=== PATIENT | female | born 1975 | race Caucasian/White ===

== ENCOUNTER 2020-01-31 12:30 | Outpatient (RCR) | payer OTHER, SELFPAY ==
--- NOTE | 2020-01-04 16:28 | PTOPEVAL ---
PHYSICAL THERAPY EVALUATION AND PLAN OF CARE 01-04-2020 Thank you for referring Ana María Santiago to [facility].?She is scheduled to be seen for therapy? 2 x/week for 4 weeks. Please review, sign, date and return this plan of care GENET. I agree with and certify that the following plan of care is medically necessary. Referring Physician Date Attending Provider: Dr. 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 Musculoskeletal History Hx Other Musculoskeletal Disorders Yes: pain in legs from edema Hematological History Hx Hematological Disorders No Significant History Endocrine History Hx Hypothyroidism Yes: meds; HEENT History Hx HEENT Disorders No Significant History Integumentary History Hx Skin Disorders No Significant History Reproductive History Hx Reproductive Disorders No Significant History Other History Hx Other Medical Conditions Yes: 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 bile duct Evaluation Information Problem Diagnosis B LE lymphedema/ lipedema Onset past 6 months Prior Level of Function Activity Level (Last 3 Months) Occupation RN at [employer], 12 hour shifts; Activity of Daily Living Ability Independent Indoor/Home Mobility Independent Community Mobility Independent Stairs Ability Independent Functional Cognition (Planning, Shopping Independent , Taking Medications) Cooking Yes Cleaning Yes Laundry Yes Shopping Yes Driving Yes Comments Additional Prior Level of Function keep going, do not allow leg Comments pain to limit her; go to gym for fitness activity - 2 x/week for one hour-- treadmill, wt and fitness group class; Pain Assessment Timing of Pain Assessment Timing of Pain Assessment Assessment Pain Scale Pain Scale Used Numeric (1 - 10) Self Report Pain Assessment Bilateral Leg(s) Reported Pain Level
--- NOTE | 2020-01-04 16:50 | PCPTNOTE ---
pt signed consent for release of information to [facility] for authorization for home intermittent compression pump.
--- NOTE | 2020-01-13 09:56 | PCPTNOTE ---
Sher cancelled this date due to therapist sickness.
--- NOTE | 2020-01-17 10:34 | PCPTNOTE ---
pt called and canceled due to having a sick child;
--- NOTE | 2020-02-09 13:03 | PCPTNOTE ---
pt did not show for today's reevaluation; called pt, she thought appt was tomorrow; reeval rescheduled.
--- NOTE | 2020-02-11 13:59 | PCPTNOTE ---
pt called and canceled today's reeval due to having to work;
--- NOTE | 2020-03-13 09:43 | PCPTNOTE ---
PHYSICAL THERAPY DISCHARGE 03-13-2020 Attending Provider: Dr. Clifton Cuevas Patient:Ana María Santiago Date of :1975 Mrs. Santiago has not returned for any further treatments since 01/31/2020, therefore she will be discharged at this time. She has received 6 PT sessions, from January 03 to January 30 for the diagnosis of B LE lymphedema. She was educated on self MLD, lymphedema skin care and appropriate compression garment- compression knee highs and capris. [facility] had given her a demo for the home compression pump and working on authorization for a home unit. The goals were not assessed. Thank you for referring Ana María to [facility]. Please review, sign, date and return this discharge summary GENET. I have been updated about the patient's current status and I agree with discharge from the above service at this time. Referring Physician Date
== END 2020-03-15 12:00 | disposition home or self-care (01) ==
LOC: ANHPT 12:30
DX: M79.605 Pain in left leg (principal); M79.604 Pain in right leg; Q82.0 Hereditary lymphedema
CPT/HCPCS: 97110; 97140; 97161